=== PATIENT | female | born 1990 | race Caucasian/White ===

== ENCOUNTER 2017-10-07 12:07 | Emergency (ER) | payer OTHER ==
[~2017-10-07] VITALS: Ht 162.6 cm; Wt 79.8 kg
[~2017-10-07 12:07] MED LIST: ACETAMINOPHEN500 MG PO; ALBU90OI INH; ALPR.5 PO; AZIT250 PO; BENZ100A PO; BUSP15 PO; Bactrim 400-801 EACH PO; Bactrim Ds Tab1 EACH PO; CEPH500 PO; CLOT10 SS; CODACE30 PO; Cleocin HCl300 MG PO; DOXY100 PO; ESCI10 PO; HYDACE5 PO; HYDHCL25 PO; IBUP600 PO; Keflex500 MG PO; NAPR550 PO; Naprosyn500 MG PO; Nix Lice Treatm59 ML TOP; Norco 5-325 Ta1 EACH PO; ONDA4 PO; OXCA300; OXYACE5T PO; PARO20 PO; PRED20 PO; Permethrin60 GM TP; QUET100; SULTRIDS PO; TRAM50 PO; UNKNOWN ABX; Vibramycin100 MG PO; ZIPR20
[2017-10-07] MEDS ORDERED: Pseudoephedrine30 MG PO (20:29)
[2017-10-07] MEDS ORDERED: Mucinex600 MG PO (20:29)
[2017-10-07] MEDS ORDERED: Zofran Odt4 MG SL (20:29)
[2017-10-07] MEDS ORDERED: BENZ100A PO (20:29)
[2018-06-19] MEDS ORDERED: IBUP800 PO (10:56)
[2018-06-19] MEDS ORDERED: ERYT1OIN RIGHTEYE (10:56)
== END 2017-10-07 14:29 | disposition left against medical advice (07) ==
LOC: ER 12:07
DX: Z53.21 Procedure and treatment not carried out due to patient leaving prior to being seen by health care provider (principal)

== ENCOUNTER 2017-10-07 17:21 | Emergency (ER) | payer OTHER ==
[~2017-10-07] VITALS: Ht 162.6 cm; Wt 79.8 kg
[2017-10-07 20:04] LABS: Influenza A Negative (NEGATIVE); Influenza B Positive (NEGATIVE)
[2017-10-07] MEDS ORDERED: Zofran Odt4 MG SL (20:29)
[2017-10-07] MEDS ORDERED: Mucinex600 MG PO (20:29)
[2017-10-07] MEDS ORDERED: BENZ100A PO (20:29)
[2017-10-07] MEDS ORDERED: Pseudoephedrine30 MG PO (20:29)
[2018-06-19] MEDS ORDERED: IBUP800 PO (10:56)
[2018-06-19] MEDS ORDERED: ERYT1OIN RIGHTEYE (10:56)
== END 2017-10-07 20:33 | disposition home or self-care (01) ==
LOC: ER 17:21
PROVIDERS: Physician Assistant
DX: J10.1 Influenza due to other identified influenza virus with other respiratory manifestations (principal); Z88.8 Allergy status to other drugs, medicaments and biological substances; Z79.899 Other long term (current) drug therapy; F41.9 Anxiety disorder, unspecified; F31.9 Bipolar disorder, unspecified; F32.9 Major depressive disorder, single episode, unspecified
CPT/HCPCS: 71046; 87804; 99284

== ENCOUNTER 2017-10-13 18:09 | Emergency (ER) | payer OTHER ==
[~2017-10-13] VITALS: Ht 162.6 cm; Wt 80.7 kg
[~2017-10-13 18:09] MED LIST changes: +Mucinex600 MG PO; +Pseudoephedrine30 MG PO; +Zofran Odt4 MG SL
[2017-10-13] MEDS ORDERED: Bactrim Ds Tab1 EACH PO (19:00)
[2017-10-13] MEDS ORDERED: Keflex500 MG PO (19:00)
[2018-06-19] MEDS ORDERED: IBUP800 PO (10:56)
[2018-06-19] MEDS ORDERED: ERYT1OIN RIGHTEYE (10:56)
== END 2017-10-13 19:06 | disposition home or self-care (01) ==
LOC: ER 18:09
DX: L02.412 Cutaneous abscess of left axilla (principal); Z88.8 Allergy status to other drugs, medicaments and biological substances; Z79.899 Other long term (current) drug therapy; F41.9 Anxiety disorder, unspecified; F31.9 Bipolar disorder, unspecified; F32.9 Major depressive disorder, single episode, unspecified
CPT/HCPCS: 99283

== ENCOUNTER → 2019-06-01 | Outpatient (CLI) | payer OTHER ==
[~2019-06-01] MED LIST changes: +ERYT1OIN RIGHTEYE; +IBUP800 PO
[2019-06-04 04:48] LABS: CHLAMYDIA TRACHOMATIS, NAA Negative (Negative); NEISSERIA GONORRHOEAE, NAA Negative (Negative)
== END ==
LOC: LAB SHORT 18:13 → LAB 18:13
PROVIDERS: Registered Nurse Community Health
DX: L29.3 Anogenital pruritus, unspecified (principal); Z20.2 Contact with and (suspected) exposure to infections with a predominantly sexual mode of transmission
CPT/HCPCS: 87070; 87205; 87491; 87591

== ENCOUNTER 2019-09-02 03:19 | Emergency (ER) | payer OTHER ==
[~2019-09-02] VITALS: Ht 162.6 cm; Wt 72.6 kg
[2019-09-02 04:37] LABS: BASOPHILS PERCENT AUTO 0 % (0-2); EOSINOPHILS ABSOLUTE AUTO 0.04 K/mm3 (0.00-0.68); EOSINOPHILS PERCENT AUTO 0 % (0-6); Hematocrit 43.3 % (33.0-51.0); IMMATURE GRAN ABSOLUTE AUTO 0.04 K/mm3 (0.00-0.10); IMMATURE GRAN PERCENT AUTO 0 % (0-1); LYMPHOCYTES ABSOLUTE AUTO 0.61 K/mm3 (0.84-5.20); LYMPHOCYTES PERCENT AUTO 5 % (21-46); MONOCYTES ABSOLUTE AUTO 0.32 K/mm3 (0.16-1.47); MONOCYTES PERCENT AUTO 3 % (4-13); Mean Corpuscular HGB 27.1 pg (26.0-34.0); Mean Corpuscular HGB Conc 32.3 g/dL (31.5-36.5); Mean Corpuscular Volume 84 fL (80-100); Mean Platelet Volume 10.4 fL (9.1-12.4); NEUTROPHILS ABSOLUTE AUTO 11.41 K/mm3 (1.96-9.15); NEUTROPHILS PERCENT AUTO 92 % (41-73); Platelet Count 305 K/mm3 (150-400); RDW Coefficient Variation 13.7 % (11.7-14.2); RDW Standard Deviation 42.1 fL (35.1-46.3); Red Blood Cell Count 5.17 M/mm3 (3.80-5.20); White Blood Cell Count 12.42 K/mm3 (4.00-11.30)
[2019-09-02 04:54] LABS: Alanine Aminotransfer (ALT/SGP 22 U/L (12-78); Albumin, Blood 4.1 g/dL (3.4-5.0); Albumin/Globulin Ratio 0.9 (0.8-1.8); Alk Phos 73 U/L (50-136); Anion Gap 10 mmol/L (6-16); Aspartate Aminotrans (AST/SGOT 14 U/L (12-37); Bilirubin, Total 0.7 mg/dL (0.1-1.0); Blood Urea Nitrogen 14 mg/dL (8-24); Bun/Creatinine Ratio 19.3 (12.0-20.0); CO2, Blood 20 mmol/L (21-32); Calcium, Blood 9.3 mg/dL (8.5-10.1); Chloride, Blood 108 mmol/L (98-108); Creatinine, Blood 0.73 mg/dL (0.40-1.00); Globulin, Blood 4.4 g/dL (2.2-4.0); Glomerular Filtration Rate >60 (60-); Glucose, Blood 123 mg/dL (70-99); Sodium, Blood 138 mmol/L (136-145); Total Protein, Blood 8.5 g/dL (6.4-8.2)
[2019-09-02] MEDS ORDERED: ONDA4ODT MM (05:18)
== END 2019-09-02 05:52 | disposition home or self-care (01) ==
LOC: ER 03:19
PROVIDERS: Emergency Medicine
DX: R11.2 Nausea with vomiting, unspecified (principal); R19.7 Diarrhea, unspecified; E86.0 Dehydration; Z88.8 Allergy status to other drugs, medicaments and biological substances; Z79.899 Other long term (current) drug therapy
CPT/HCPCS: 36415; 80053; 83690; 85025; 96361; 96374; 99283-25; A9270-GY; J2405; J7030

== ENCOUNTER 2019-12-03 09:15 | Emergency (ER) | payer OTHER ==
[~2019-12-03] VITALS: Ht 162.6 cm; Wt 75.3 kg
[~2019-12-03 09:15] MED LIST changes: +ONDA4ODT MM
== END 2019-12-03 10:59 | disposition home or self-care (01) ==
LOC: ER 09:15
DX: K14.0 Glossitis (principal); Z88.8 Allergy status to other drugs, medicaments and biological substances
CPT/HCPCS: 87081; 87430; 99283

== ENCOUNTER → 2020-01-23 | Outpatient (CLI) | payer OTHER ==
[2020-01-26 15:09] LABS: CHLAMYDIA BY NAA Negative (Negative); GONOCOCCUS BY NAA Negative (Negative); TRICH VAG BY NAA Positive (Negative)
== END ==
LOC: LAB SHORT 14:14 → LAB 14:14
PROVIDERS: Registered Nurse Community Health
DX: N89.8 Other specified noninflammatory disorders of vagina (principal)
CPT/HCPCS: 87070; 87205; 87491; 87591; 87661

== ENCOUNTER → 2020-05-24 | Outpatient (CLI) | payer OTHER | LOC: LAB EV 13:04 → LAB SHORT 13:04 | DX: Z20.828 Contact with and (suspected) exposure to other viral communicable diseases (principal) | CPT/HCPCS: U0003 ==

== ENCOUNTER 2021-09-12 19:00 | Emergency (ER) | payer OTHER ==
[~2021-09-12] VITALS: Ht 160 cm; Wt 80.3 kg
[~2021-09-12 19:00] MED LIST changes: +GABA300 PO; +OFLOXACIN5 M1 BOTHEARS
[2021-09-12] MEDS ORDERED: IBUP600 PO (20:32)
[2021-09-12] MEDS ORDERED: ACET500 PO (20:32)
[2021-09-12] MEDS ORDERED: ONDA4ODT MM (20:32)
[2021-09-14] MEDS ORDERED: Amoxicillin875 MG PO (16:08)
== END 2021-09-12 20:50 | disposition home or self-care (01) ==
LOC: ER 19:00
DX: J06.9 Acute upper respiratory infection, unspecified (principal); B34.9 Viral infection, unspecified; Z20.822 Contact with and (suspected) exposure to COVID-19; Z88.8 Allergy status to other drugs, medicaments and biological substances
CPT/HCPCS: 71046; 86308; 87081; 87147; 87430; 99283-25; A9270

== ENCOUNTER → 2022-01-23 | Outpatient (CLI) | payer OTHER ==
[~2022-01-23] MED LIST changes: +ACET500 PO; +Amoxicillin875 MG PO
[2022-01-27 06:11] LABS: CHLAMYDIA BY NAA Negative (Negative); GONOCOCCUS BY NAA Negative (Negative)
[2022-01-27 10:04] LABS: TRICH VAG BY NAA Positive (Negative)
== END | disposition home or self-care (01) ==
LOC: LAB SHORT 19:02
PROVIDERS: Physician Assistant Surgical
DX: N89.8 Other specified noninflammatory disorders of vagina (principal)
CPT/HCPCS: 87070; 87086; 87205; 87491; 87591; 87661

== ENCOUNTER → 2022-03-05 | Outpatient (CLI) | payer OTHER | END | disposition home or self-care (01) | LOC: LAB SHORT 09:50 → LAB 09:50 | PROVIDERS: Physician Assistant | DX: Z01.419 Encounter for gynecological examination (general) (routine) without abnormal findings (principal) | CPT/HCPCS: G0145 ==

== ENCOUNTER → 2022-12-23 | Outpatient (CLI) | payer OTHER ==
[2022-12-24 09:58] LABS: Candida species (DNA Probe) Negative (NEGATIVE); G. vaginalis (DNA Probe) Negative (NEGATIVE); T. vaginalis (DNA Probe) Negative (NEGATIVE)
== END | disposition home or self-care (01) ==
LOC: LAB 16:40 → LAB SHORT 16:40
PROVIDERS: Registered Nurse Community Health
DX: Z11.3 Encounter for screening for infections with a predominantly sexual mode of transmission (principal)
CPT/HCPCS: 87480; 87510; 87660

== ENCOUNTER → 2025-06-04 | Outpatient (CLI) | payer OTHER | LOC: LAB 15:17 → LAB SHORT 15:17 | PROVIDERS: Advanced Practice Midwife | DX: Z01.419 Encounter for gynecological examination (general) (routine) without abnormal findings (principal) | CPT/HCPCS: 87624; G0145 ==